=== PATIENT | female | born 1935 | race Caucasian/White ===

== ENCOUNTER 2017-08-15 11:51 | Outpatient (CLI) | payer OTHER | END 2017-08-18 16:56 | disposition home or self-care (01) | LOC: LAB 11:51 | DX: N39.0 Urinary tract infection, site not specified (principal) ==

== ENCOUNTER 2017-10-02 08:49 | Outpatient (CLI) | payer OTHER | END 2017-10-02 09:11 | disposition home or self-care (01) | LOC: MRI 08:49 | DX: D49.0 Neoplasm of unspecified behavior of digestive system (principal); R93.2 Abnormal findings on diagnostic imaging of liver and biliary tract | CPT/HCPCS: 74182; A9579; 74181 ==